=== PATIENT | male | born 1995 | race Caucasian/White ===

== ENCOUNTER 2018-09-13 02:08 | Outpatient (CLI) | payer MEDICARE, MEDICAID, SELFPAY | END 2018-09-13 02:28 | PROVIDERS: PCP Family Medicine; Visit Provider Internal Medicine Endocrinology, Diabetes & Metabolism | DX: E23.6 Other disorders of pituitary gland (principal) | CPT/HCPCS: 36415; 82533 ==

== ENCOUNTER 2020-08-28 00:32 | Outpatient (CLI) | payer MEDICARE, MEDICAID, SELFPAY ==
[2020-08-28 13:21] LABS: FREE T4 1.23 ng/dL (0.76-1.46)
[2020-09-01 09:32] LABS: Testosterone, Total 547 ng/dL (240-950)
[2020-09-04 18:13] LABS: AM Cortisol 7.4 mcg/dL (5-25); Cortisol, Free 0.298 mcg/dL
== END 2020-08-28 00:52 ==
PROVIDERS: PCP Family Medicine; Visit Provider Family Medicine
DX: E23.0 Hypopituitarism (principal); E34.9 Endocrine disorder, unspecified
CPT/HCPCS: 36415; 82530; 82533; 84403; 84439; 84443

== ENCOUNTER 2020-11-30 05:00 | Emergency (ER) | payer MEDICARE, MEDICAID, SELFPAY ==
[2020-11-30] VITALS (12 sets, daily range): BP systolic 124–143; BP diastolic 75–90; PULSE 85–105; RESP 17–26; TEMP 37; O2SAT 97–99
--- NOTE | 2020-11-30 04:56 | ED.GENADUL_ITS ---
Discharge Plan Disposition Patient Disposition: HOME Condition: Good Discharge Details Clinical Impression: Near syncope Primary Care Provider: Lori Claudio ED Provider: Ole Alcala Meds and New Rx's Prescriptions: Continued fluoride (sodium) [PreviDent 5000 Dry Mouth] 1.1 % gel 1 applic DT QHS RF: 0 Solu-Cortef 100 MG recon soln 30 mg IJ PRN Qty: 1 RF: 11 erythromycin [Ilotycin] 1 GM ointment 1 cm Ophthalmic TID PRNQty: 1 RF: 11 hydrocortisone 20 MG tablet 1.5 tab PO BID PRN PRNQty: 30 RF: 0 cholecalciferol (vitamin D3) 1,000 UNIT capsule 1 cap PO DAILY RF: 0 ketotifen fumarate 5 ML drops 1 drp Ophthalmic BID PRN RF: 0 (DME) needle (disp) 18 G [BD Regular Bevel [place]] 18 gauge x 1 needle See Rx Instructions .ROUTE .MEDSUPPLY Qty: 100 RF: 4 (DME) BD SafetyGlide Needle 25 x 5/8 needle See Rx Instructions .ROUTE .MEDSUPPLY Qty: 50 RF: 4 (DME) BD Luer-Tricia Syringe 1 mL syringe See Rx Instructions .ROUTE .MEDSUPPLY Qty: 100 RF: 4 testosterone cypionate 200 mg/mL oil 70 mg IM WEEKLY RF: 0 Discharge Instructions Instructions: Near Syncope (ED) Additional Instructions: Be sure to drink plenty of fluids and stay hydrated. Continue current medications. No stress dose of steroids at this time. Follow-up with primary care if continued symptoms. Return to ED for true syncope, mental status changes, difficulty breathing, persistent fever, other concerns. Referrals: Lori Claudio MD [Primary Care Provider] - Medical Decision Making Patient presenting to ED by ambulance after near syncopal event at home. This has occurred in the past. Patient did receive second Covid vaccine yesterday. Reported to be febrile for EMS but is afebrile here. States he feels much better. Does have history of pituitary insufficiency and does have cortisone available at home but parents did not give. He is not hypotensive here. He looks well. Lungs are clear and saturations normal. Will give liter of fluid and check basic labs and urine. EKG is sinus rhythm with right axis otherwise unremarkable. Patient's laboratory studies unremarkable. White count and hemoglobin normal. Electrolytes normal. Urinalysis negative. Orthostatics were obtained and he has not orthostatic. Patient safe for discharge home. Would not stress dose with steroids at this time. Follow-up with primary care. Return to ED if true syncope, altered mental status, persistent high fever, other concerns. Lab Data Lab results reviewed: Yes I reviewed the patient's lab results. ECG Data Attestation: I personally reviewed and interpreted this ECG (s) as follows: Prior ECG tracings: not available for review Interpretation: See EKG HPI General Mode of arrival: EMS . Date/Time Provider Initiated Documentation: 11/30/20 05:26 . Information obtained by: patient, family and RN notes reviewed . HPI Narrative: Patient presents to ED by ambulance for evaluation of near syncopal events at home. Father present at bedside as patient difficult to understand due to hearing and speech impairment. Patient woke up this morning and felt dizzy walking to the bathroom. Had 2 episodes of almost passing out but did not actually lose consciousness. This has occurred in the past with last episode maybe a year ago. He does have pituitary insufficiency and does have cortisone both orally and injectable. Parents did not give either this morning as she did not lose consciousness and has not been ill. However, he did get his second dose of the Covid vaccine less than 24 hours ago. His arm is sore. He denies headache, body aches, fever though EMS reported fever on their arrival. He is feeling much better at this point. Related Data Home Medications Medication Instructions Recorded Confirmed Solu-Cortef 30 mg IJ PRN #1 vial 10/08/12 11/30/20 erythromycin [Ilotycin] 1 cm OPHTHALMIC TID PRN #1 gm 10/08/12 11/30/20 hydrocortisone 1.5 tab PO BID PRN PRN #30 tab 01/15/13 11/30/20 cholecalciferol (vitamin D3) 1 cap PO DAILY cap 11/19/13 11/30/20 ketotifen fumarate 1 drp OPHTHALMIC BID PRN drp 11/02/17 11/30/20 fluoride (sodium) 1.1 % dental gel 1 applic DT QHS 11/08/18 11/30/20 needle (disp) 18 G 18 gauge x 1 #100 ea 10/07/20 safety needles 25 x 5/8 #50 ea 10/07/20 syringe (disposable) 1 mL #100 ea 10/07/20 testosterone cypionate 70 mg IM WEEKLY 11/30/20 11/30/20 Previous Rx's Medication Instructions Recorded needle (disp) 18 G 18 gauge x 1 #100 ea 10/07/20 safety needles 25 x 5/8 #50 ea 10/07/20 syringe (disposable) 1 mL #100 ea 10/07/20 Allergies Allergy/AdvReac Type Severity Reaction Status Date / Time No Known Allergies Allergy Unverified 09/02/20 09:48 Review of Systems Narrative: As documented in HPI otherwise negative as below. Const: no fever, chills, weakness Resp: no cough, SOB, pleuritic pain CV: no CP, diaphoresis, edema GI: no abdominal pain, nausea, vomiting, diarrhea Neuro: no headache, numbness, focal weakness, confusion PFSH Medical History Allergic rhinitis Cleft palate History of excessive cerumen Impacted cerumen, left ear Learning difficulty Pituitary insufficiency Sensorineural hearing loss Surgical History Gastrostomy Tube Placement Poor feeding as ; malrotation Malrotation Repair Repair, Cleft Palate Multiple Procedures Tooth extraction Multiple procedures Family History (Updated 02/12/20 @ 15:01 by Niharika Holland) Mother Hypertension Father Diabetes Essential hypertension Hyperlipidemia Sister , MVA at age 14. No problems noted. Brother Deficiency of adrenocorticotropic hormone Hearing loss Heart disease congenital heart diseas: ASD Depression Maternal Grandmother Diabetes Essential hypertension Asthma Stroke Maternal Grandfather , 50s Heart disease Paternal Grandfather , 47 Diabetes Depression Paternal Grandmother Essential hypertension Heart disease Hyperlipidemia Maternal Uncle Essential hypertension Maternal Aunt Essential hypertension Social History Smoking/Tobacco Use Status: Never Smoking risk assessment performed?: Yes Alcohol Intake: never Drug use: Never Substance use type: does not use Caregiver/Support person: Yes Household members: family and other Details: 4 Housing: house Communication Needs: Hard of Hearing and Corrective Lenses Do you need help understanding health information?: Always Pets and animals: Yes Pets and animals: dog(s) Sexually active: No Do you think of yourself as: straight/heterosexual Current gender identity: male What is your relationship status?: never How often do you talk on the phone with friends or family?: never How often do you get together with friends or relatives?: once per week How often do you attend gnosticist or cheondoism services?: decline to answer Do you belong to any clubs or organized social groups?: yes Panel score (0-1 are the most socially isolated patients): 1 What type of physical activity do you participate in: walking and weight lifting Duration: < 15 minutes/day Frequency: 3-4 times per week Mckenna/Catholic: Worship Special mckenna needs: No Seatbelt use: always Helmet use: Yes Drive intox or ride w/intox trolley coach driver: No Do you feel safe at home: Yes Do you feel safe in your relationship?: Yes Exam Narrative Exam Narrative: Const: Thin male in NAD. Neck: Supple. Trachea midline. Lungs: Normal respiratory effort. Lungs are clear. Cor: RRR without murmur/gallop. Good radial pulses. GI: Soft. NT/ND. No guarding or rebound. Neuro: A+O x 3. Cranial nerves II - XII grossly intact. No gross motor or sensory deficit. Ext: No C/C/E. Skin: Warm and dry without rash.
--- NOTE | 2020-11-30 05:15 | RT.EKG_ITS ---
APPROVED REPORT Exam: Resting ECG Patient Location: E HR:91 bpm ECG Measurements Heart Rate 91 AXIS OH 170 P 35 QRSd 80 QRS 137 QT 331 T 23 QTc 407 Conclusion Sinus rhythm...normal P axis, V-rate 60- 99 Left atrial enlargement...P, P'>60mS, <-0.15mV V1 Right axis deviation...QRS axis (181,269) I have reviewed and interpreted ECG and agree with software generated interpretation.
[2020-11-30 05:39] LABS: Abs Immature Grans 0.04 10^3/uL (0.0-0.06); Absolute Basophil Count 0.05 10^3/uL (0.0-0.2); Absolute Eosinophil Count 0.15 10^3/uL (0.0-0.7); Absolute Monocyte Count 0.37 10^3/uL (0.1-0.8); Absolute Neutrophil Count 8.56 10^3/uL (1.2-6.7); Basophils % 0.5; Eosinophils % 1.5; HCT 48.2 % (40.0-50.0); HGB 16.1 g/dL (13.5-17.5); Immature Grans % 0.4; MCH 30.4 pg (27.0-33.0); MCHC 33.4 % (32.0-36.0); MCV 90.9 fL (80-95); MPV 10.2 fL (8.0-11.0); Monocytes % 3.7; Neutrophils % 85.9; Nucleated RBC 0 %; Platelet Count 173 10^3/uL (130-400); RDW 11.9 % (11.8-14.1); RDW-SD 39.9 fL; WBC 9.97 10^3/uL (4.4-10.8)
[2020-11-30 05:54] LABS: ALT 27 U/L (16-63); AST 14 U/L (15-37); Albumin 4.3 g/dL (3.4-5.0); Alkaline Phosphatase 53 U/L (46-116); Anion Gap 8.1 mmol/L (3-11); BUN 13 mg/dL (7-18); Bilirubin, Total 1.5 mg/dL (0.2-1.0); CO2 29.9 mmol/L (21.0-32.0); CREATININE 1.4 mg/dL (0.70-1.30); Calcium 9.6 mg/dL (8.5-10.1); Chloride 98 mmol/L (98-107); Glucose 127 mg/dL (74-106); Potassium 3.9 mmol/L (3.5-5.1); Sodium 136 mmol/L (136-145); Total Protein 7.7 g/dL (6.4-8.2)
[2020-11-30 06:45] LABS: Bilirubin Negative (Negative); Blood Negative (Negative); Clarity Clear (Clear); Glucose Negative (Negative); Ketones Negative (Negative); Leukocyte Esterase Negative (Negative); Nitrite Negative (Negative); Urobilinogen 0.2 EU/dL (Up TO 0.2)
== END 2020-11-30 07:20 | disposition home or self-care (01) ==
PROVIDERS: Emergency Provider Emergency Medicine; PCP Family Medicine
DX: R55 Syncope and collapse (principal)
CPT/HCPCS: 80053; 93005; 99283; 81003; 85025; 93010

== ENCOUNTER 2021-05-13 02:59 | Outpatient (CLI) | payer MEDICARE, MEDICAID, SELFPAY ==
[2021-05-13 13:00] LABS: ALT 32 U/L (16-63); AST 20 U/L (15-37); Albumin 4.4 g/dL (3.4-5.0); Alkaline Phosphatase 49 U/L (46-116); Anion Gap 5.5 mmol/L (3-11); BUN 12 mg/dL (7-18); Bilirubin, Total 1.3 mg/dL (0.2-1.0); CO2 30.5 mmol/L (21.0-32.0); CREATININE 1.4 mg/dL (0.70-1.30); Calcium 9.6 mg/dL (8.5-10.1); Chloride 103 mmol/L (98-107); Glucose 139 mg/dL (74-106); Potassium 4.2 mmol/L (3.5-5.1); Sodium 139 mmol/L (136-145); TSH (W/Ref FT4) 1.98 uIU/mL (0.36-3.74); Total Protein 7.4 g/dL (6.4-8.2)
[2021-05-13 13:14] LABS: Vitamin D 25 Total 8.3 ng/mL (30-100)
[2021-05-18 00:01] LABS: Testosterone, Total 689 ng/dL (240-950)
== END 2021-05-13 03:00 | disposition home or self-care (01) ==
LOC: LOS 03:00
PROVIDERS: PCP Family Medicine; Visit Provider Family Medicine
DX: E23.0 Hypopituitarism (principal); E55.9 Vitamin D deficiency, unspecified; E80.6 Other disorders of bilirubin metabolism
CPT/HCPCS: 36415; 80053; 82306; 82533; 84403; 84443

== ENCOUNTER 2021-08-19 04:18 | Outpatient (CLI) | payer MEDICARE, MEDICAID, SELFPAY ==
[2021-08-19 08:52] LABS: HCT 53.9 % (40.0-50.0); HGB 17.6 g/dL (13.5-17.5); MCHC 32.7 % (32.0-36.0); MPV 10.1 fL (8.0-11.0); Platelet Count 216 10^3/uL (130-400); RBC 5.86 10^6/uL (4.36-5.78); RDW 12.3 % (11.8-14.1); RDW-SD 41.8 fL; WBC 5.92 10^3/uL (4.4-10.8)
[2021-08-19 10:02] LABS: ALT 34 U/L (16-63); AST 19 U/L (15-37); Albumin 4.7 g/dL (3.4-5.0); Alkaline Phosphatase 56 U/L (46-116); Anion Gap 7.2 mmol/L (3-11); BUN 10 mg/dL (7-18); Bilirubin, Total 1.4 mg/dL (0.2-1.0); CO2 30.8 mmol/L (21.0-32.0); CREATININE 1.3 mg/dL (0.70-1.30); Calcium 9.7 mg/dL (8.5-10.1); Calculated LDL 60 mg/dL (<100); Chloride 98 mmol/L (98-107); Cholesterol 140 mg/dL (<200); Glucose 96 mg/dL (74-106); HDL Cholesterol 68 mg/dL (40-60); Potassium 4.1 mmol/L (3.5-5.1); Sodium 136 mmol/L (136-145); TSH (W/Ref FT4) 2.58 uIU/mL (0.36-3.74); Total Protein 8.1 g/dL (6.4-8.2); Triglyceride 64 mg/dL (<150)
[2021-08-19 10:10] LABS: Bilirubin, Direct 0.3 mg/dL (0.0-0.2)
[2021-08-19 10:13] LABS: Vitamin D 25 Total 94.2 ng/mL (30-100)
[2021-08-24 15:52] LABS: Testosterone, Total 830 ng/dL (240-950)
== END 2021-08-19 04:19 | disposition home or self-care (01) ==
LOC: LBO 04:18
PROVIDERS: PCP Family Medicine; Visit Provider Family Medicine
DX: E23.0 Hypopituitarism (principal); E55.9 Vitamin D deficiency, unspecified; R17 Unspecified jaundice; Z13.6 Encounter for screening for cardiovascular disorders; I10 Essential (primary) hypertension
CPT/HCPCS: 36415; 80053; 80061; 82306; 82533; 84403; 85027; 82248; 84443

== ENCOUNTER 2022-02-25 02:22 | Outpatient (CLI) | payer MEDICARE, MEDICAID, SELFPAY ==
[2022-02-25 12:52] LABS: HCT 51.1 % (40.0-50.0); HGB 16.8 g/dL (13.5-17.5); MCH 30.3 pg (27.0-33.0); MCHC 32.9 % (32.0-36.0); MCV 92 fL (80-95); MPV 11.3 fL (8.0-11.0); Platelet Count 200 10^3/uL (130-400); RBC 5.54 10^6/uL (4.36-5.78); RDW 12.3 % (11.8-14.1); RDW-SD 42.2 fL; WBC 5.72 10^3/uL (4.4-10.8)
[2022-02-25 13:07] LABS: ALT 42 U/L (16-63); AST 21 U/L (15-37); Albumin 4.4 g/dL (3.4-5.0); Alkaline Phosphatase 53 U/L (46-116); Anion Gap 7.8 mmol/L (3-11); BUN 13 mg/dL (7-18); Bilirubin, Total 0.9 mg/dL (0.2-1.0); CO2 29.2 mmol/L (21.0-32.0); CREATININE 1.5 mg/dL (0.70-1.30); Calcium 9.6 mg/dL (8.5-10.1); Chloride 101 mmol/L (98-107); Estimated GFR 55.73 (mL/min/1.73m2); Glucose 93 mg/dL (74-106); Potassium 4.1 mmol/L (3.5-5.1); Sodium 138 mmol/L (136-145); Total Protein 7.8 g/dL (6.4-8.2)
[2022-03-03 21:41] LABS: Testosterone, Total 391 ng/dL (240-950)
== END 2022-02-25 02:23 | disposition home or self-care (01) ==
LOC: LOS 02:22
PROVIDERS: PCP Nurse Practitioner Family; Visit Provider Family Medicine
DX: I10 Essential (primary) hypertension (principal); E23.0 Hypopituitarism; E23.7 Disorder of pituitary gland, unspecified; E34.9 Endocrine disorder, unspecified
CPT/HCPCS: 36415; 80053; 84403; 85027

== ENCOUNTER 2022-05-19 02:32 | Outpatient (CLI) | payer MEDICARE, MEDICAID, SELFPAY ==
[2022-05-19 12:16] LABS: Abs Immature Grans 0.03 10^3/uL (0.0-0.06); Absolute Eosinophil Count 0.53 10^3/uL (0.0-0.7); Absolute Lymphocyte Count 1.83 10^3/uL (1.2-3.4); Absolute Monocyte Count 0.34 10^3/uL (0.1-0.8); Absolute Neutrophil Count 2.79 10^3/uL (1.2-6.7); Basophils % 1.8; Eosinophils % 9.4; HCT 52.2 % (40.0-50.0); HGB 17.5 g/dL (13.5-17.5); Immature Grans % 0.5; Lymphocytes % 32.6; MCH 30.2 pg (27.0-33.0); MCHC 33.5 % (32.0-36.0); MCV 90 fL (80-95); MPV 11.5 fL (8.0-11.0); Neutrophils % 49.7; Platelet Count 196 10^3/uL (130-400); WBC 5.62 10^3/uL (4.4-10.8)
[2022-05-19 12:47] LABS: ALT 38 U/L (16-63); AST 22 U/L (15-37); Albumin 4.5 g/dL (3.4-5.0); Alkaline Phosphatase 60 U/L (46-116); Anion Gap 4.3 mmol/L (3-11); BUN 15 mg/dL (7-18); Bilirubin, Total 0.8 mg/dL (0.2-1.0); CO2 32.7 mmol/L (21.0-32.0); CREATININE 1.4 mg/dL (0.70-1.30); Calcium 9.9 mg/dL (8.5-10.1); Chloride 99 mmol/L (98-107); Estimated GFR 70.21 (mL/min/1.73m2); Glucose 115 mg/dL (74-106); Potassium 4.3 mmol/L (3.5-5.1); Sodium 136 mmol/L (136-145); Total Protein 8.1 g/dL (6.4-8.2)
[2022-05-19 12:59] LABS: Vitamin D 25 Total 70.7 ng/mL (30-100)
[2022-05-19 13:10] LABS: Anion Gap 5.2 mmol/L (3-11); BUN 15 mg/dL (7-18); CO2 31.8 mmol/L (21.0-32.0); CREATININE 1.4 mg/dL (0.70-1.30); Calcium 9.7 mg/dL (8.5-10.1); Chloride 98 mmol/L (98-107); Estimated GFR 70.21 (mL/min/1.73m2); Glucose 114 mg/dL (74-106); Potassium 4.2 mmol/L (3.5-5.1); Sodium 135 mmol/L (136-145)
[2022-05-24 17:53] LABS: IGF-1, LC/MS, S 124 ng/mL (60-329); Z-score -0.67 SD
[2022-05-31 13:57] LABS: Testosterone, Free 23.2 ng/dL (5.05-19.8); Testosterone, Total 554 ng/dL (240-950)
== END 2022-05-19 02:33 | disposition home or self-care (01) ==
LOC: LOS 02:32
PROVIDERS: PCP Nurse Practitioner Family; Visit Provider Student in an Organized Health Care Education/Training Program
DX: E23.0 Hypopituitarism (principal); Z79.890 Hormone replacement therapy
CPT/HCPCS: 36415; 80048; 80053; 82306; 82533; 84402; 84403; 84305; 84439; 85025

== ENCOUNTER 2023-05-04 05:08 | Outpatient (CLI) | payer MEDICARE, MEDICAID, SELFPAY ==
[2023-05-04 12:27] LABS: Abs Immature Grans 0.04 10^3/uL (0.0-0.06); Absolute Basophil Count 0.09 10^3/uL (0.0-0.2); Absolute Eosinophil Count 0.37 10^3/uL (0.0-0.7); Absolute Lymphocyte Count 1.84 10^3/uL (1.2-3.4); Absolute Monocyte Count 0.36 10^3/uL (0.1-0.8); Absolute Neutrophil Count 3.46 10^3/uL (1.2-6.7); Basophils % 1.5; HCT 54.7 % (40.0-50.0); HGB 17.8 g/dL (13.5-17.5); Immature Grans % 0.6; Lymphocytes % 29.9; MCHC 32.5 % (32.0-36.0); MCV 92 fL (80-95); MPV 10.8 fL (8.0-11.0); Monocytes % 5.8; Neutrophils % 56.2; Platelet Count 230 10^3/uL (130-400); RBC 5.93 10^6/uL (4.36-5.78); RDW 12.3 % (11.8-14.1); RDW-SD 42.5 fL; WBC 6.16 10^3/uL (4.4-10.8)
[2023-05-04 12:47] LABS: Anion Gap 7.4 mmol/L (3-11); BUN 13 mg/dL (7-18); CO2 31.6 mmol/L (21.0-32.0); CREATININE 1.4 mg/dL (0.70-1.30); Calcium 10.8 mg/dL (8.5-10.1); Calculated LDL 64 mg/dL (<100); Chloride 101 mmol/L (98-107); Cholesterol 159 mg/dL (<200); Estimated GFR 69.77 (mL/min/1.73m2); FREE T4 1.25 ng/dL (0.76-1.46); Glucose 117 mg/dL (74-106); HDL Cholesterol 81 mg/dL (40-60); Sodium 140 mmol/L (136-145); Triglyceride 71 mg/dL (<150)
[2023-05-04 12:59] LABS: Vitamin D 25 Total 58.5 ng/mL (30-100)
[2023-05-08 16:30] LABS: IGF-1, LC/MS, S 127 ng/mL (60-329); Z-score -0.67 SD
[2023-05-13 10:40] LABS: Testosterone, Free 15.2 ng/dL (5.05-19.8); Testosterone, Total 446 ng/dL (240-950)
== END 2023-05-04 05:09 | disposition home or self-care (01) ==
LOC: LOS 05:08
PROVIDERS: PCP Nurse Practitioner Family; Visit Provider Student in an Organized Health Care Education/Training Program
DX: Z13.6 Encounter for screening for cardiovascular disorders (principal); E23.6 Other disorders of pituitary gland; E55.9 Vitamin D deficiency, unspecified
CPT/HCPCS: 36415; 80048; 80061; 82306; 82533; 84402; 84403; 84305; 84439; 85025

== ENCOUNTER 2023-06-27 02:57 | Outpatient (CLI) | payer MEDICARE, MEDICAID, SELFPAY ==
[2023-06-27 12:09] LABS: HCT 47.6 % (40.0-50.0); HGB 16.1 g/dL (13.5-17.5)
[2023-06-27 12:28] LABS: Albumin 4.4 g/dL (3.4-5.0); Calcium 10.2 mg/dL (8.5-10.1)
[2023-06-27 18:02] LABS: Parathyroid Hormone,Intact 27 pg/mL (19-88)
[2023-07-06 16:50] LABS: Testosterone, Free 0.31 ng/dL (4.85-19.0); Testosterone, Total 9.9 ng/dL (240-950)
== END 2023-06-27 02:58 | disposition home or self-care (01) ==
LOC: LOS 02:57
PROVIDERS: PCP Nurse Practitioner Family; Visit Provider Student in an Organized Health Care Education/Training Program
DX: Z79.890 Hormone replacement therapy (principal); E23.0 Hypopituitarism
CPT/HCPCS: 36415; 84402; 84403; 82040; 82310; 83970; 85014; 85018

== ENCOUNTER 2023-10-19 03:10 | Outpatient (CLI) | payer MEDICARE, MEDICAID, SELFPAY ==
[2023-10-19 12:06] LABS: HCT 51.1 % (40.0-50.0); HGB 16.9 g/dL (13.5-17.5)
[2023-10-19 12:22] LABS: Albumin 4.8 g/dL (3.4-5.0); Calcium 10.4 mg/dL (8.5-10.1)
[2023-10-19 19:25] LABS: Parathyroid Hormone,Intact 36 pg/mL (19-88)
[2023-10-26 13:15] LABS: Testosterone, Free 9.75 ng/dL (4.85-19.0); Testosterone, Total 267 ng/dL (240-950)
== END 2023-10-19 03:11 | disposition home or self-care (01) ==
PROVIDERS: PCP Nurse Practitioner Family; Visit Provider Student in an Organized Health Care Education/Training Program
DX: Z79.890 Hormone replacement therapy (principal); E23.0 Hypopituitarism
CPT/HCPCS: 36415; 84402; 84403; 82040; 82310; 83970; 85014; 85018

== ENCOUNTER 2024-01-18 00:47 | Outpatient (CLI) | payer MEDICARE, MEDICAID, SELFPAY ==
[2024-01-18 12:17] LABS: HCT 51.3 % (40.0-50.0); HGB 16.5 g/dL (13.5-17.5)
[2024-01-24 14:25] LABS: Testosterone, Free 10.6 ng/dL (4.85-19.0); Testosterone, Total 278 ng/dL (240-950)
== END 2024-01-18 00:48 | disposition home or self-care (01) ==
LOC: LOS 00:47
PROVIDERS: PCP Nurse Practitioner Family; Visit Provider Student in an Organized Health Care Education/Training Program
DX: D75.1 Secondary polycythemia (principal); E23.0 Hypopituitarism
CPT/HCPCS: 36415; 84402; 84403; 85014; 85018

== ENCOUNTER 2024-05-02 02:50 | Outpatient (CLI) | payer MEDICARE, MEDICAID, SELFPAY ==
[2024-05-02 12:31] LABS: HCT 49.8 % (40.0-50.0); HGB 16.5 g/dL (13.5-17.5)
[2024-05-02 12:51] LABS: Albumin 4.4 g/dL (3.4-5.0); Anion Gap 5.7 mmol/L (3-11); BUN 16 mg/dL (7-18); CO2 30.3 mmol/L (21.0-32.0); CREATININE 1.3 mg/dL (0.70-1.30); Chloride 101 mmol/L (98-107); Estimated GFR 75.79 (mL/min/1.73m2); FREE T4 1.19 ng/dL (0.76-1.46); Glucose 90 mg/dL (74-106); Sodium 137 mmol/L (136-145)
[2024-05-02 13:40] LABS: Vitamin D 25 Total 51.8 ng/mL (30-100)
[2024-05-08 18:26] LABS: IGF-1, LC/MS, S 118 ng/mL (60-329); Z-score -0.84 SD
[2024-05-09 11:02] LABS: Testosterone, Free 9.82 ng/dL (4.85-19.0); Testosterone, Total 247 ng/dL (240-950)
== END 2024-05-02 02:51 | disposition home or self-care (01) ==
LOC: LOS 02:50
PROVIDERS: PCP Nurse Practitioner Family; Visit Provider Student in an Organized Health Care Education/Training Program
DX: E23.0 Hypopituitarism (principal); Z79.899 Other long term (current) drug therapy; D75.1 Secondary polycythemia
CPT/HCPCS: 80048; 82306; 82533; 84402; 84403; 82040; 84305; 84439; 85014; 85018

== ENCOUNTER 2024-11-21 01:05 | Outpatient (CLI) | payer MEDICARE, MEDICAID, SELFPAY ==
[2024-11-21 08:26] LABS: HCT 51.1 % (40.0-50.0); HGB 16.6 g/dL (13.5-17.5)
[2024-11-21 08:32] LABS: Albumin 4.5 g/dL (3.4-5.0); CREATININE 1.5 mg/dL (0.70-1.30); Calcium 9.9 mg/dL (8.5-10.1); Estimated GFR 63.44 (mL/min/1.73m2); FREE T4 1.08 ng/dL (0.76-1.46)
[2024-11-21 18:35] LABS: Prolactin 8.3 ng/mL (2.1-17.7)
[2024-11-22 17:24] LABS: Adrenocorticotropic Hormone, P 10 pg/mL
[2024-11-28 16:55] LABS: Testosterone, Free 10.7 ng/dL (4.85-19.0); Testosterone, Total 232 ng/dL (240-950)
[2024-11-30 16:54] LABS: IGF-1, LC/MS, S 112 ng/mL (54-310); Z-score -0.84 SD
== END 2024-11-21 01:06 | disposition home or self-care (01) ==
PROVIDERS: PCP Nurse Practitioner Family; Visit Provider Student in an Organized Health Care Education/Training Program
DX: E83.52 Hypercalcemia (principal); E23.0 Hypopituitarism
CPT/HCPCS: 36415; 82533; 84402; 84403; 82024; 82040; 82310; 82565; 84146; 84305; 84439; 85014; 85018

== ENCOUNTER 2025-07-28 01:25 | Outpatient (CLI) | payer MEDICARE, MEDICAID, SELFPAY | END 2025-07-28 01:26 | disposition home or self-care (01) | PROVIDERS: PCP Nurse Practitioner Family; Visit Provider Internal Medicine Endocrinology, Diabetes & Metabolism | DX: E23.0 Hypopituitarism (principal); D75.1 Secondary polycythemia | CPT/HCPCS: 36415; 84403 ==